=== PATIENT | female | born 1950 | race Caucasian/White ===

== ENCOUNTER 2017-07-29 05:31 | Day surgery (SDC) | payer OTHER ==
[2017-07-19 09:55] VITALS: BMI 37.0
--- NOTE | 2017-07-28 19:21 | History and Physical ---
History & Physical Date Jul 28, 2017. Chief Complaint right ankle pain History of Present Illness The patient is a 66 year old female with complaints of right ankle and hindfoot pain since a fall she had in the fall of 2016. She had an MRI in late 2016 which noted subtalar joint DJD and subfibular impingement of the right lower extremity because of a pes planus deformity. She is now being set up for surgical tx. Past Medical/Surgical History PMH: high cholesterol, sleep apnea with CPAP, obesity, hx of kidney stones and hepatitis. Social hx: Denies alcohol and tobacco use. Family hx: non contributory Past surgical hx: left ankle, cholecystectomy, hysterectomy, appendectomy Allergies Coded Allergies: Penicillins (Verified Allergy, Unknown, RASH A CHILD, 07/19/17) Home Medications Scheduled Aspirin (Aspirin Ec), 81 MG PO QAM Diclofenac (Voltaren), 75 MG PO QAM Lisinopril/Hctz (Zestoretic 20MG/25MG), 1 TAB PO QAM [Vitapak Ultra Nabil], 1 PKT PO QAM Physical Examination Skin: warm/dry, no rash Eyes: normal inspection ENT: normal ENT inspection Head: normocephalic, atraumatic Neck: supple, no adenopathy, trachea midline Respiratory/Chest: lungs clear, normal breath sounds, no respiratory distress Cardiovascular: regular rate, rhythm Abdomen / GI: normal bowel sounds, non tender Extremities: + pertinent finding (Right ankle: pes planus deformity. Swelling of the lateral hindfoot. Tender at the sinus tarsi and distal fibula. Dorsiflexion is decreased with achilles tightness.) Neurologic/Psych: no motor/sensory deficits, alert, oriented x 3 Diagnosis Right subtalar joint DJD Right subfibular impingement Right achilles contracture Plan of Treatment Recommend a right subtalar fusion, percutaneous tendoachilles lengthening. All potential risks, benefits, complications, alternatives, and rehab have been discussed and the patient wishes to proceed. She will be scheduled for 07.29.17 with plans for ASA 81 mg BID for DVT prophylaxis.
[~2017-07-29] VITALS: Ht 157.5 cm; Wt 91.8 kg
[~2017-07-29 05:31] MED LIST: ASPI81TA28 PO; DICL-201 PO; LISI-788 PO; [UNRECOGNIZED DRUG - OTHER] PO
[2017-07-29] MEDS ORDERED: CLINDAMYCIN 600 MG/54 ML D5W IV SCH (06:00)
[2017-07-29] MEDS ORDERED: LACTATED RINGER'S 1000ML 1,000 ML IV SCH (06:00)
[2017-07-29 06:12] VITALS: BP 154/72; PULSE 68; TEMP 36.7; O2SAT 96; Ht 157.5 cm; Wt 91.8 kg
[2017-07-29] MEDS ORDERED: GLYCOPYRROLATE INJ 0.2 MG/ML VIAL ONE ×2 (06:29→08:13)
[2017-07-29] MEDS ORDERED: NEOSTIGMINE METHYLSULFATE 5 MG/5 ML SYR ONE (06:29)
[2017-07-29] MEDS ORDERED: PROPOFOL IV EMULSION 10 MG/ML 20 ML VIAL IV ONE ×2 (06:29→08:13)
[2017-07-29] MEDS ORDERED: DEXAMETHASONE SOD INJ 4 MG/ML VIAL ONE (06:29)
[2017-07-29] MEDS ORDERED: ONDANSETRON INJ 2 MG/ML 2 ML VIAL ONE (06:29)
[2017-07-29] MEDS ORDERED: FENTANYL CITRATE INJ 50 MCG/1 ML 2 ML VIAL ONE (06:29)
[2017-07-29] MEDS ORDERED: MIDAZOLAM HCL 1 MG/ML 2ML VIAL ONE (06:29)
[2017-07-29] MEDS ORDERED: ROCURONIUM BROMIDE 10 MG/ML 5 ML VIAL IV ONE (06:29)
[2017-07-29] MEDS ORDERED: SUCCINYLCHOLINE CHLORIDE 20 MG/ML 10 ML VIAL IV ONE (06:29)
[2017-07-29] MEDS ORDERED: LIDOCAINE HCL 2% 2 ML VIAL (20MG/ML) ONE (06:29)
[2017-07-29] MEDS ORDERED: ROPIVACAINE 0.5% 5 MG/ML 30 ML VIAL ONE (06:32)
[2017-07-29] MEDS ORDERED: BUPIVACAINE 0.5 % 5 MG/1 ML PF 10ML VIAL ONE (06:34)
[2017-07-29] MEDS ORDERED: EpINEphrine INJ 1MG/ML AMP 1 MG/ML AMP ONE (06:35)
[2017-07-29] MEDS ORDERED: BACITRACIN 50000 UNIT VIAL ONE (06:54)
[2017-07-29] MEDS ORDERED: ATROPINE SULFATE 0.1 MG/ML 5ML SYR IV PRN (07:30)
[2017-07-29] MEDS ORDERED: ONDANSETRON INJ 2 MG/ML 2 ML VIAL IV PRN (07:30)
[2017-07-29] MEDS ORDERED: EpHEDrine SULFATE INJ 50 MG/ML AMP IV PRN (07:30)
[2017-07-29] MEDS ORDERED: FENTANYL CITRATE INJ 50 MCG/1 ML 2 ML VIAL IV PRN (07:30)
[2017-07-29] MEDS ORDERED: HYDROmorphone INJ 1 MG/ML SYR IV PRN (07:30)
--- NOTE | 2017-07-29 07:38 | History & Physical Bridge Note ---
H&P Re-Evaluation Bridge Note: I have examined the patient, reviewed the History & Physical and in the interval since the performance of the History & Physical I have noted the following changes of clinical significance: No changes noted
[2017-07-29] MEDS ORDERED: PHENYLEPHRINE 100MCG/ML 5ML SYR ONE (08:13)
[2017-07-29] MEDS ORDERED: EpHEDrine SULFATE 50MG/5ML SYR ONE (08:13)
--- NOTE | 2017-07-29 09:37 | [facility] Post Operative Brief Note ---
Immediate Operative Summary Operative Date Jul 29, 2017. 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 Right Ankle Subtalar Fusion with application of autograft and allograft 2. Percutaneous Tendon Achilles Lengthening; 3. Excision of avulsion lateral talus 4. Excision Os Trigonum 5. Autograft harvest lateral Calcaneus Surgeon Dr. Alfaro Edge Grinder Surgeon(s) Curry Fung PA-C Estimated Blood Loss 3 ml Findings Consistent with Post-Op Diagnosis Specimens none per surgeon Drains HV x 1 Anesthesia Type General Regional Complication(s) none Disposition Accompanied Pt To Recover: no Disposition: Recovery Room / PACU
[2017-07-29] MEDS ORDERED: ASPI81TA28 PO (09:56)
[2017-07-29] MEDS ORDERED: OXYC-57 PO (09:56)
[2017-07-29] MEDS ORDERED: PROM25TA9 PO (09:56)
--- NOTE | 2017-07-29 09:59 | Discharge Instructions ---
Discharge Instructions Date of Service Jul 29, 2017. Admission Reason for Admission: Right Ankle Subfibular Impingement, Osteoarthritis Discharge Discharge Diagnosis / Problem: right subtalar osteoarthritis, subfibular impingement Discharge Goals Goal(s): Decrease discomfort, Improve function Activity Recommendations Activity Limitations: per Instructions/Follow-up section Weightbearing Status: Right non-weightbearing . Instructions / Follow-Up Instructions / Follow-Up ACTIVITY RECOMMENDATIONS: Limitations: No weight bearing to affected limb at all times. SPECIAL CARE INSTRUCTIONS: * Some drainage onto the dressing is normal and is no cause for alarm. * Some swelling is natural especially after walking. * When resting, keep your foot elevated above the level of your heart. * Call [facility] if you notice: -Increased drainage -Fever over 101 degrees F -Severe constant pain BANDAGE: * Leave bandage/cast in place unless otherwise directed. * Keep bandage/cast dry at all times. FOLLOW UP VISIT WITH DR. CARSON If appointment is not already scheduled: Please call [facility] after you get home today to schedule a follow-up appointment for [address] Carson at . Current Hospital Diet Patient's current hospital diet: Discharge Diet Recommended Diet: Regular Diet Procedures Procedures Performed: 1. Right Ankle Subtalar Fusion with application of autograft and allograft 2. Percutaneous Tendon Achilles Lengthening; 3. Excision of avulsion lateral talus 4. Excision Os Trigonum 5. Autograft harvest lateral Calcaneus Pending Studies Studies pending at discharge: no Medical Emergencies . Who to Call and When: Medical Emergencies: If at any time you feel your situation is an emergency, please call 911 immediately. . Non-Emergent Contact Non-Emergency issues call your: Surgeon Call Non-Emergent contact if: temperature is above 101, your pain is not controlled, your pain is worsening . "Provider Documentation" section prepared by Curry Fung. .
[2017-07-29] MEDS ORDERED: OXYCODONE/ACETAMINOPHEN 5-325 TAB PO PRN (10:00)
--- NOTE | 2017-07-29 10:31 | DIAGNOSTIC IMAGING REPORT ---
R ANKLE MIN 3 VIEWS ROUTINE, R FOOT MIN 3 VIEWS ROUTINE CLINICAL HISTORY: post op COMPARISON STUDY: None. FINDINGS: Overlying splint material obscures fine bony detail. Skin alexandria seen within the posterior ankle. A surgical drain is in place. There are 2 screws through the calcaneus resulting in subtalar fusion. The hardware appears intact. No acute fracture or dislocation. IMPRESSION: Postoperative changes consistent with subtalar fusion. No evidence for hardware complication. Electronically signed by: Venkat Jarrell M.D. 07/29/2017 10:30 AM Dictated Date/Time: 07/29/2017 10:28 AM
[2017-07-29 10:35] VITALS: BP 146/83; PULSE 82; TEMP 36.5; O2SAT 99
--- NOTE | 2017-07-29 10:51 | Anesthesiology Progress Note ---
Anesthesia Post Op Note Date & Time Jul 29, 2017 at 10:51 Vital Signs Pain Intensity: 0 Vital Signs Past 12 Hours Date Time Temp Pulse Resp B/P (MAP) Pulse Ox O2 Delivery O2 Flow Rate FiO2 07/29/17 10:25 95 16 117/73 94 Room Air 07/29/17 10:15 94 16 122/67 96 Room Air 07/29/17 10:05 88 16 111/60 96 Oxymask 10 07/29/17 09:55 91 16 111/58 96 Oxymask 10 07/29/17 09:47 36.4 102 16 97/54 97 Oxymask 10 07/29/17 06:12 36.7 68 16 154/72 (99) 96 Room Air Notes Mental Status: alert / awake / arousable, participated in evaluation Pt Amnestic to Procedure: Yes Nausea / Vomiting: adequately controlled Pain: adequately controlled Airway Patency, RR, SpO2: stable & adequate BP & HR: stable & adequate Hydration State: stable & adequate Anesthetic Complications: no major complications apparent
[2017-07-29 11:05] VITALS: BP 135/74; PULSE 80; TEMP 36.5; O2SAT 95
[2017-07-29 11:35] VITALS: BP 132/70; PULSE 82; TEMP 36.5; O2SAT 95
--- NOTE | 2017-07-29 14:28 | OPERATIVE REPORT ---
DATE OF OPERATION: 07/29/2017 PREOPERATIVE DIAGNOSES: 1. Right subtalar joint degenerative joint disease. 2. Subfibular impingement. 3. Achilles tendon contracture. POSTOPERATIVE DIAGNOSES: 1. Right subtalar joint degenerative joint disease. 2. Subfibular impingement. 3. Achilles tendon contracture. 4. Os trigonum syndrome. 5. Avulsion fracture lateral talus. PROCEDURE: 1. Right ankle subtalar fusion with application autograft and allograft. 2. Percutaneous tendo Achilles lengthening. 3. Excision avulsion fracture of the lateral talus. 4. Excision os trigonum. 5. Autograft harvest of the lateral calcaneus. SURGEON: Dr. Alfaro. PHOTOENGRAVER APPRENTICE: Curry Fung PA-C, who was present for patient positioning, sterile prep and drape, management of retractors and instruments. He was present through the critical portions of the case including wound closure, application of sterile dressing and transport of the patient to recovery. ANESTHESIA: General LMA with popliteal block. SPECIMENS: None. DRAINS: Hemovac x1. COMPLICATIONS: None. BLOOD LOSS: 3 mL PERTINENT HISTORY: This is a 66-year-old female with chronic progressive and ongoing right subtalar joint degenerative joint disease with severe pain and limitation in ambulation. She has attempted and failed all manners of conservative management including shoe wear modification, anti-inflammatories, rest, previous steroid injection, observation and modification of lifestyle activities. Radiographs and CT scan demonstrate severe subtalar joint loss of joint space, marginal osteophytes, subchondral sclerosis and subfibular impingement. Os trigonum was also noted. The patient was then scheduled for surgery as indicated. All potential risks, benefits, complications, alternatives, rehab potential for incomplete relief of symptoms, need for further surgery, DVT, PE, , persistent pain, swelling, scarring, weakness, neurovascular injury, wound complications, hardware failure, bone fracture, nonunion, malunion were discussed with the patient. The patient decided to proceed with the procedure as indicated. Patient was taken to the operative suite and placed on the operating room table. After review the consent engaged proper operative site the patient was then anesthetized and LMA was placed. Tourniquet is applied high on the right lower extremity. Right lower extremity was then elevated and exsanguinated and is bandaged. Tourniquet was then inflated to 350 mmHg. 11 blade scalpel was then used to make a three-part percutaneous incision in the posterior aspect of the Achilles tendon thus lengthening in a fractional fashion. The incisions were then closed using skin [place]and[place]. 15 blade scalpel was used to make an incision lateral aspect of the hindfoot from the distal fibula to the base of the fourth metatarsal. The incision was deepened to the simultaneous tissue. Meticulous hemostasis was achieved with electrocautery. Metzenbaum scissors were used to dissect the soft tissue down to the level of the extensor digitorum brevis. The extensor digitorum brevis was then incised in line with its fibers and the sinus tarsus was then entered. A wheat [place] retractor was then used to retract soft tissues. The peroneal tendons were identified, retracted and preserved. Next a curette and rongeur were used to remove any residual articular cartilage from the subtalar joint from both calcaneus and the talus. The wound was copious irrigated with sterile normal saline until clear. The large os trigonum noted at the posterior aspect of the subtalar joint was then identified. A lamina nuclear engineer was then used to open the subtalar joint to gain access to the os trigonum which was then resected using a combination of a curved curette and pituitary rongeur the os trigonum measured approximately 1 cm x 9 mm x 9 mm. Once this was resected there was noted to be also an avulsion fracture from the lateral talus adjacent to the distal fibula. This was avulsion fracture was resected with a rongeur. Once again the subtalar joint was then irrigated until clear with sterile normal saline. Next the talus and the calcaneus were then drilled with 2.0 mm drill bit to increase his inguinal stem cell proliferation and bleeding. A 6 mm osteotome and mallet was then used to fish scale the subtalar joint to increase surface area for fusion. The lateral aspect of the distal calcaneus was then decorticated with a osteotome and mallet. A rongeur and curette were then used to harvest cancellus bone graft from within the body of the calcaneus. This autograft was then packed into the subtalar joint to enhance bony fusion. The bone window was then closed and tamped in place with a bone tamp and mallet at the lateral calcaneus. Next subtalar joint was then closely approximated and aligned appropriately followed by creation of a stab incision in the posterior tuberosity of the calcaneus with a 15 blade scalpel. Next a 2.25 mm guidepin was driven from the tuberosity calcaneus through the subtalar joint into the talar neck under live fluoroscopic assistance. Next an appropriate length 7.3 mm cannulated screw was placed to stabilize and compressed subtalar joint fusion. A second 7.3 mm cannulated screw was then used to stabilize and compress the subtalar joint. Both screws were tightened and countersunk appropriately. Next final irrigations forms are normal saline until clear. Approximately 5 cc of cancellus allograft was then impacted into the sinus tarsi with a bone tamp and mallet. Next the extensor digitorum brevis was then closed using 2-0 Vicryl sutures. A 10 [place] single-lumen Hemovac drain was placed in the sinus tarsi exiting the foot dorsolaterally. Guide pins were removed from the posterior tuberosity of the calcaneus. Small stab incision in the posterior tuberosity was then closed using skin [place]. Next the dermis is closed using buried up to 3-0 Vicryl suture. Skin was closed using 4-0 nylon suture. Final radiographs were obtained in multiple views using C-arm fluoroscopy. A sterile compressive dressing and bulky Forrest Nicole plaster splint was applied overwrapped with an Jerry wrap. The foot was placed in neutral dorsiflexion. The tourniquet was released, the patient was awakened and taken recovery in stable condition. I attest to the content of the Intraoperative Record and any orders documented therein. Any exceptions are noted below. SANTO
== END 2017-07-29 11:50 | disposition home or self-care (01) ==
LOC: C.ACU 05:31
PROVIDERS: ATTEND Orthopaedic Surgery Sports Medicine
DX: M19.071 Primary osteoarthritis, right ankle and foot (principal); M25.871 Other specified joint disorders, right ankle and foot; M67.01 Short Achilles tendon (acquired), right ankle; E78.00 Pure hypercholesterolemia, unspecified; G47.30 Sleep apnea, unspecified; E66.9 Obesity, unspecified; Z68.37 Body mass index [BMI] 37.0-37.9, adult; Z90.710 Acquired absence of both cervix and uterus; Z99.89 Dependence on other enabling machines and devices; Z87.442 Personal history of urinary calculi; Z88.0 Allergy status to penicillin; Z79.82 Long term (current) use of aspirin; Z90.49 Acquired absence of other specified parts of digestive tract